=== PATIENT | female | born 2000 | race Caucasian/White ===

== ENCOUNTER → 2020-02-04 | Outpatient (CLI) | payer MEDICAID | END | disposition home or self-care (01) | LOC: LABWHC1 11:59 | PROVIDERS: ATTEND Physician Assistant Medical | DX: U07.1 COVID-19 (principal); R00.2 Palpitations | CPT/HCPCS: 36415; 93005 ==

== ENCOUNTER → 2020-02-10 | Outpatient (CLI) | payer MEDICAID ==
--- NOTE | 2020-02-10 14:22 | XR ---
EXAMINATION TYPE: XR chest 2V DATE OF EXAM: 02/10/2020 COMPARISON: Prior chest x-ray December 20, 2016 HISTORY: Covid +3 weeks ago. Shortness of breath. TECHNIQUE: Frontal and lateral views of the chest are obtained. FINDINGS: There is no focal air space opacity, pleural effusion, or pneumothorax seen. The cardiac silhouette size is within normal limits. The osseous structures are intact. IMPRESSION: No acute cardiopulmonary process. No significant change from prior.
== END | disposition home or self-care (01) ==
LOC: RADXRMAIN 13:47
PROVIDERS: ATTEND Nurse Practitioner
DX: R06.02 Shortness of breath (principal)
CPT/HCPCS: 71046

== ENCOUNTER → 2022-12-23 | Outpatient (CLI) | payer BC ==
[2022-12-23 11:06] LABS: ALT 19 U/L (8-44); AST 16 U/L (13-35); Albumin 4.2 d/dL (3.8-4.9); Albumin/Globulin Ratio 1.68 Ratio (1.60-3.17); Alkaline Phosphatase 87 U/L (41-126); BUN/Creat Ratio 11.78 Ratio (12.00-20.00); Blood Urea Nitrogen 10.6 mg/dL (9.0-27.0); Calcium 9.3 mg/dL (8.7-10.3); Chloride 105 mmol/L (96-109); Chol/HDL Ratio 3.48 Ratio; Globulin 2.5 d/dL (1.6-3.3); Glucose 92 mg/dL (70-110); LDL Cholesterol,Calculated 103.8 mg/dL (0.0-131.0); Sodium 142 mmol/L (135-145); Total Bilirubin 0.3 mg/dL (0.3-1.2); Total Protein 6.7 d/dL (6.2-8.2)
[2022-12-23 11:07] LABS: Basophils # (A) 0.04 X 10*3/uL (0.00-0.10); Basophils % (A) 0.5 %; Eosinophils % (A) 1.3 %; HCT 43.3 % (37.2-46.3); HGB 14.7 d/dL (12.0-15.0); Lymphocytes # (A) 2.69 X 10*3/uL (0.90-5.00); Lymphocytes % (A) 35.8 %; MCH 29.7 pg (27.0-32.0); MCHC 33.9 d/dL (32.0-37.0); MCV 87.5 FL (80.0-97.0); Mean Platelet Volume 9.6 FL (9.5-12.2); Monocytes # (A) 0.52 X 10*3/uL (0.20-1.00); Monocytes % (A) 6.9 %; NRBC Per 100 WBC 0 X 10*3/uL (0.00-0.01); Neutrophils # (A) 4.14 X 10*3/uL (1.80-7.70); Neutrophils % (A) 55.2 %; Platelet Count 349 X 10*3/uL (140-440); RBC 4.95 X 10*6/uL (4.10-5.20); RDW 11.9 % (11.5-14.5); WBC 7.51 X 10*3/uL (4.50-10.00)
== END | disposition home or self-care (01) ==
LOC: LABWHC1 07:17
PROVIDERS: ATTEND Family Medicine
DX: Z00.00 Encounter for general adult medical examination without abnormal findings (principal)
CPT/HCPCS: 36415; 80053; 80061; 83036; 85025

== ENCOUNTER 2023-11-19 10:33 | Emergency (ER) | payer BC ==
[2023-11-19] MEDS: KETOROLAC 15 MG/ML 1 ML VIAL IVP STA (11:34)
[2023-11-19 12:01] LABS: Basophils % (A) 0 %; Eosinophils # (A) 0.1 k/uL (0-0.7); Eosinophils % (A) 1 %; HCT 40.3 % (34.0-46.0); Lymphocytes # (A) 1.7 k/uL (1.0-4.8); Lymphocytes % (A) 10 %; MCH 30.4 pg (25.0-35.0); MCHC 34.7 g/dL (31.0-37.0); MCV 87.6 fL (80.0-100.0); Mean Platelet Volume 7.5; Monocytes # (A) 0.7 k/uL (0-1.0); Monocytes % (A) 4 %; Neutrophils # (A) 13.3 k/uL (1.3-7.7); Neutrophils % (A) 84 %; Platelet Count 344 k/uL (150-450); RDW 12.3 % (11.5-15.5); WBC 15.9 k/uL (3.8-10.6)
[2023-11-19 12:07] LABS: Appearance,Urine Cloudy (Clear); Bacteria,Urine Occasional /hpf; Bilirubin,Urine Negative (Negative); Blood,Urine Trace (Negative); Color,Urine Yellow; Glucose,Urine (UA) Negative (Negative); Ketones,Urine 1+ (Negative); Leukocyte Esterase,Urine Large (Negative); Mucus,Urine Many /hpf; Nitrite,Urine Negative (Negative); Protein,Urine 1+ (Negative); RBC,Urine 6 /hpf (0-5); Specific Gravity,Urine 1.044 (1.001-1.035); Squamous Epithelial Cell,Urine 4 /hpf (0-4); Urobilinogen,Urine <2.0 mg/dL (<2.0); WBC,Urine 12 /hpf (0-5)
[2023-11-19 12:20] LABS: ALT 16 U/L (4-34); AST 21 U/L (14-36); African American GFR (CKD) >90 (>60 ml/min/1.73 sqM); Albumin 4.1 g/dL (3.5-5.0); Alkaline Phosphatase 84 U/L (38-126); Anion Gap 8 mmol/L; Blood Urea Nitrogen 13 mg/dL (7-17); Calcium 9.1 mg/dL (8.4-10.2); Carbon Dioxide 24 mmol/L (22-30); Chloride 107 mmol/L (98-107); Glucose 84 mg/dL (74-99); Non-African American GFR(CKD) >90 (>60 ml/min/1.73 sqM); Potassium 3.9 mmol/L (3.5-5.1); Sodium 139 mmol/L (137-145); Total Bilirubin 0.8 mg/dL (0.2-1.3)
--- NOTE | 2023-11-19 12:41 | ED ---
Skin/Abscess/FB HPI - General Chief complaint: Skin/Abscess/Foreign Body Stated complaint: cyst on butt Time Seen by Provider: 11/19/23 12:40 Source: patient, RN notes reviewed Mode of arrival: ambulatory Limitations: no limitations - History of Present Illness Initial comments: 23-year-old female presenting to the ER with a chief complaint of a buttock abscess. Patient states she first noticed it as a sore which she describes as a bruise on her right inner buttock. She states it has slowly has been beginning to grow into a size of a grape and larger over the past 2 weeks. Patient was seen by urgent care and started on doxycycline. Patient states that she has had an increase in pain in the past day making it difficult to lay or touch. She d oes report low-grade fevers at home. No drainage from the area. No history of pilonidal cyst. Patient denies any abdominal pain, urinary complaints, constipation/diarrhea. No history of autoimmune diseases. - Related Data Home Medications Medication Instructions Recorded Confirmed Doxycycline Hyclate 100 mg PO BID 11/19/23 11/19/23 Kurvelo 1 tab PO HS 11/19/23 11/19/23 Previous Rx's Medication Instructions Recorded Clindamycin [Cleocin] 150 mg PO Q6H 7 Days #84 capsule 11/19/23 Nitrofurantoin Monohyd/M-Cryst 100 mg PO Q12HR #14 cap 11/19/23 [Macrobid] Allergies Allergy/AdvReac Type Severity Reaction Status Date / Time amoxicillin Allergy Rash/Hives Verified 11/19/23 10:41 Review of Systems ROS Statement: Those systems with pertinent positive or pertinent negative responses have been documented in the HPI. ROS Other: All systems not noted in ROS Statement are negative. Past Medical History Past Medical History: No Reported History History of Any Multi-Drug Resistant Organisms: None Reported Past Surgical History: No Surgical Hx Reported Past Psychological History: No Psychological Hx Reported Smoking Status: Never smoker Past Alcohol Use History: Occasional Past Drug Use History: None Reported General Exam Limitations: no limitations General appearance: alert, in no apparent distress Respiratory exam: Present: normal lung sounds bilaterally. Absent: respiratory distress, wheezes, rales, rhonchi, stridor Cardiovascular Exam: Present: regular rate, normal rhythm, normal heart sounds. Absent: systolic murmur, diastolic murmur, rubs, gallop, clicks GI/Abdominal exam: Present: soft, normal bowel sounds. Absent: distended, tenderness, guarding, rebound, rigid Neurological exam: Present: alert, oriented X3, CN II-XII intact Skin exam: Present: warm, dry, intact, normal color, other ([id number] indurated area to right buttock lateral to pilonidal sinus) Course Vital Signs 11/19/23 11/19/23 11/19/23 10:38 13:33 14:24 Temperature 98.2 F 101.2 F H 100 F H Pulse Rate 98 100 106 H Respiratory 20 18 18 Rate Blood Pressure 143/85 148/96 137/89 O2 Sat by Pulse 99 100 Oximetry 11/19/23 14:51 Temperature 100 F H Pulse Rate 101 H Respiratory 18 Rate Blood Pressure 134/86 O2 Sat by Pulse 99 Oximetry Procedures - Incision & Drainage Consent Obtained: verbal consent Indication: abscess Site: buttock Size (cm): 3 Anesthetic Used: lidocaine 1%, without epi Amount (mLs): 5 I&D Cleaning Method: Alcohol Wipe Sterile Field Used?: Yes Scalpel Used: #11 Ultrasound used: No Needle Aspiration Performed?: Yes Irrigation Performed?: No I&D Drainage Obtained: Pus, Blood Insertion of drain: No Patient Tolerated Procedure: well Medical Decision Making - Medical Decision Making Was pt. sent in by a medical professional or institution ([facility] Gasca, [employer], urgent ca re, hospital, or [facility]...) When possible be specific @ -No Did you speak to anyone other than the patient for history (EMS, parent, family, police, friend...)? What history was obtained from this source @ -No Did you review nursing and triage notes (agree or disagree)? Why? @ -I reviewed and agree with nursing and triage notes Were old charts reviewed (outside hosp., previous admission, EMS record, old EKG, old radiological studies, urgent care reports/EKG's, [facility] records)? Report findings @ -No old charts were reviewed Differential Diagnosis (chest pain, altered mental status, abdominal pain women, abdominal pain men, vaginal bleeding, weakness, fever, dyspnea, syncope, headache, dizziness, GI bleed, back pain, seizure, CVA, palpatations, mental health, musculoskeletal)? @ -Abscess, cyst, fistula This list is not meant to be all-inclusive EKG interpreted by me (3pts min.). @ -None done X-rays interpreted by me (1pt min.). @ -None done CT interpreted by me (1pt min.). @ -CT abdomen pelvis left gluteal perianal 3.3 cm abscess. No obvious track to the rectum. Midline 10.1 cm complex pelvic mass most consistent with a teratoma. Likely originates from the left ovary. U/S interpreted by me (1pt. min.). @ -None done What testing was considered but not performed or refused? (CT, X-rays, U/S, labs)? Why? @ -None What meds were considered but not given or refused? Why? @ -None Did you discuss the management of the patient with other professionals (professionals i.e. , PA, PARTS FINISHER, lab, RT, psych nurse, professor of social work, technical marketing engineer, teacher, special police officer, case investigator)? Give summary @ -No Was smoking cessation discussed for >3mins.? @ -No Was critical care preformed (if so, how long)? @ -No Were there social determinants of health that impacted care today? How? (Homelessness, low income, unemployed, alcoholism, drug addiction, transportation, low edu. Level, literacy, decrease access to med. care, residential, rehab)? @ -No Was there de-escalation of care discussed even if they declined (Discuss DNR or withdrawal of care, Hospice)? DNR status @ -No What co-morbidities impacted this encounter? (DM, HTN, Smoking, COPD, CAD, Ca ncer, CVA, ARF, Chemo, Hep., AIDS, mental health diagnosis, sleep apnea, morbid obesity)? @ -None Was patient admitted / discharged? Hospital course, mention meds given and route, prescriptions, significant lab abnormalities, going to OR and other pertinent info. @ -Discharge. 23-year-old female presented to the ER with a chief complaint of a buttock abscess. History and physical exam completed. Vitals within the limits. On examination there is a 3 x 4 cm fluctuance/indurated area overlying erythema consistent with an abscess to the right buttock just lateral to pilonidal region. No drainage present. Area is tender to touch. Due to concern of fistula CT and laboratory studies obtained.Laboratory studies remarkable for a WBC of 15.9 with a left shift otherwise unremarkable. Urinalysis concerning of infection with large leukocyte esterases, 12 WBCs and occasional bacteria. Urine hCG negative. CT abdomen pelvis showing a left gluteal perianal 3.3 cm abscess. No obvious tract to the rectum. There is also a midline 10.1 cm complex pelvic mass most consistent with a teratoma likely originating from left ovary. Patient became febrile in the ER at 101.2 and received p.o. Tylenol at that time. Patient received symptomatic pain control in the ER. Abscess drained, see note above. Clindamycin prescribed for abscess. Macrobid prescribed for UTI. I advise close follow-up with [employer], referral given for further evaluation of teratoma. As patient is young with no comorbidities patient is stable for discharge with outpatient follow-up. Strict return parameters discussed. Patient discharged in stable condition. Patient verbally expressed understanding and agreement with care plan. Case discussed with ED attending, Dr. Banda Undiagnosed new problem with uncertain prognosis? @ -No Drug Therapy requiring intensive monitoring for toxicity (Heparin, Nitro, Insulin, Cardizem)? @ -No Were any procedures done? @ -Yes, I&D Diagnosis/symptom? @ -UTI/teratoma/perianal abscess Acute, or Chronic, or Acute on Chronic? @ -Acute Uncomplicated (without systemic symptoms) or Complicated (systemic symptoms)? @ -Complicated Side effects of treatment? @ -No Exacerbation, Progression, or Severe Exacerbation? @ -No Poses a threat to life or bodily function? How? (Chest pain, [place], [place], pneumonia, PE, COPD, DKA, ARF, appy, cholecystitis, CVA, Diverticulitis, Homicidal, Suicidal, threat to staff... and all critical care pts) @ -No - Lab Data Result diagrams: 11/19/23 11:32 11/19/23 11:32 Lab Results 11/19/23 11/19/23 11/19/23 Range/Units 11:32 11:32 11:32 WBC 15.9 H (3.8-10.6) k/uL RBC 4.60 (3.80-5.40) m/uL Hgb 14.0 (11.4-16.0) gm/dL Hct 40.3 (34.0-46.0) % MCV 87.6 (80.0-100.0) fL MCH 30.4 (25.0-35.0) pg MCHC 34.7 (31.0-37.0) g/dL RDW 12.3 (11.5-15.5) % Plt Count 344 (150-450) k/uL MPV 7.5 Neutrophils % 84 % Lymphocytes % 10 % Monocytes % 4 % Eosinophils % 1 % Basophils % 0 % Neutrophils # 13.3 H (1.3-7.7) k/uL Lymphocytes # 1.7 (1.0-4.8) k/uL Monocytes # 0.7 (0-1.0) k/uL Eosinophils # 0.1 (0-0.7) k/uL Basophils # 0.0 (0-0.2) k/uL Sodium (137-145) mmol/L Potassium (3.5-5.1) mmol/L Chloride (98-107) mmol/L Carbon Dioxide (22-30) mmol/L Anion Gap mmol/L BUN (7-17) mg/dL Creatinine (0.52-1.04) mg/dL Est GFR (CKD-EPI)AfAm (>60 ml/min/1.73 sqM) Est GFR (CKD-EPI)NonAf (>60 ml/min/1.73 sqM) Glucose (74-99) mg/dL Plasma Lactic Acid Sanford (0.7-2.0) mmol/L Calcium (8.4-10.2) mg/dL Total Bilirubin (0.2-1.3) mg/dL AST (14-36) U/L ALT (4-34) U/L Alkaline Phosphatase (38-126) U/L Total Protein (6.3-8.2) g/dL Albumin (3.5-5.0) g/dL Urine Color Yellow Urine Appearance Cloudy H (Clear) Urine pH 6.0 (5.0-8.0) Ur Specific Bennett 1.044 H (1.001-1.035) Urine Protein 1+ H (Negative) Urine Glucose (UA) Negative (Negative) Urine Ketones 1+ H (Negative) Urine Blood Trace H (Negative) Urine Nitrite Negative (Negative) Urine Bilirubin Negative (Negative) Urine Urobilinogen <2.0 (<2.0) mg/dL Ur Leukocyte Esterase Large H (Negative) Urine RBC 6 H (0-5) /hpf Urine WBC 12 H (0-5) /hpf Ur Squamous Epith Cells 4 (0-4) /hpf Urine Bacteria Occasional H (None) /hpf Urine Mucus Many H (None) /hpf Urine HCG, Qual Not Detected (Not Detectd) 11/19/23 11/19/23 Range/Units 11:32 11:32 WBC (3.8-10.6) k/uL RBC (3.80-5.40) m/uL Hgb (11.4-16.0) gm/dL Hct (34.0-46.0) % MCV (80.0-100.0) fL MCH (25.0-35.0) pg MCHC (31.0-37.0) g/dL RDW (11.5-15.5) % Plt Count (150-450) k/uL MPV Neutrophils % % Lymphocytes % % Monocytes % % Eosinophils % % Basophils % % Neutrophils # (1.3-7.7) k/uL Lymphocytes # (1.0-4.8) k/uL Monocytes # (0-1.0) k/uL Eosinophils # (0-0.7) k/uL Basophils # (0-0.2) k/uL Sodium 139 (137-145) mmol/L Potassium 3.9 (3.5-5.1) mmol/L Chloride 107 (98-107) mmol/L Carbon Dioxide 24 (22-30) mmol/L Anion Gap 8 mmol/L BUN 13 (7-17) mg/dL Creatinine 0.75 (0.52-1.04) mg/dL Est GFR (CKD-EPI)AfAm >90 (>60 ml/min/1.73 sqM) Est GFR (CKD-EPI)NonAf >90 (>60 ml/min/1.73 sqM) Glucose 84 (74-99) mg/dL Plasma Lactic Acid Sanford 0.9 (0.7-2.0) mmol/L Calcium 9.1 (8.4-10.2) mg/dL Total Bilirubin 0.8 (0.2-1.3) mg/dL AST 21 (14-36) U/L ALT 16 (4-34) U/L Alkaline Phosphatase 84 (38-126) U/L Total Protein 7.0 (6.3-8.2) g/dL Albumin 4.1 (3.5-5.0) g/dL Urine Color Urine Appearance (Clear) Urine pH (5.0-8.0) Ur Specific Bennett (1.001-1.035) Urine Protein (Negative) Urine Glucose (UA) (Negative) Urine Ketones (Negative) Urine Blood (Negative) Urine Nitrite (Negative) Urine Bilirubin (Negative) Urine Urobilinogen (<2.0) mg/dL Ur Leukocyte Esterase (Negative) Urine RBC (0-5) /hpf Urine WBC (0-5) /hpf Ur Squamous Epith Cells (0-4) /hpf Urine Bacteria (None) /hpf Urine Mucus (None) /hpf Urine HCG, Qual (Not Detectd) - Radiology Data Radiology results: report reviewed, image reviewed Disposition Clinical Impression: UTI (urinary tract infection), Perianal abscess, Teratoma of left ovary Disposition: HOME SELF-CARE Condition: Stable Instructions (If sedation given, give patient instructions): Abscess Incision and Drainage (ED) Additional Instructions: Continue to use heat and massage abscess to aid with drainage. Complete full course of clindamycin for abscess and UTI. Follow-up with [employer] for further evaluation of teratoma. Return to the ER for any new or worsening concerns. Prescriptions: Clindamycin [Cleocin] 150 mg PO Q6H 7 Days #84 capsule Nitrofurantoin Monohyd/M-Cryst [Macrobid] 100 mg PO Q12HR #14 cap Is patient prescribed a controlled substance at d/c from ED?: No Referrals: Scott Styles MD [Primary Care Provider] - 1-2 days Derrell Gómez MD [STAFF PHYSICIAN] - 1-2 days Time of Disposition: 14:23
--- NOTE | 2023-11-19 13:22 | CT ---
EXAMINATION TYPE: CT abdomen pelvis w con CT DLP: 1745.4 mGycm, Automated exposure control for dose reduction was used. DATE OF EXAM: 11/19/2023 1:09 PM COMPARISON: None CLINICAL INDICATION:Female, 23 years old with history of left buttock abscess; Left buttock abscess; UTI TECHNIQUE: Standard CT of the abdomen and pelvis following the administration of 100 cc of Isovue 3 00 IV contrast material. Coronal and sagittal reformats were performed. FINDINGS: LOWER CHEST: Unremarkable ABDOMEN LIVER: Unremarkable GALLBLADDER AND BILE DUCTS: Unremarkable. PANCREAS: Unremarkable. SPLEEN: Unremarkable. ADRENAL GLANDS: Unremarkable. KIDNEYS AND URETERS: No evidence of hydronephrosis or renal calculus. The kidneys enhance symmetrical ly. Contrast demonstrate within both collecting systems on delayed phase. PELVIS BLADDER: Under distended, limiting evaluation. REPRODUCTIVE: Midline pelvic 10.1 x 9.5 x 9.4 cm mass containing fat, fluid, soft tissue, and calcifi cation (series 201, image 24). There is surrounding mass effect upon the uterus with deviation to the right. ABDOMEN & PELVIS STOMACH AND BOWEL: Stomach and duodenum are unremarkable. No focal bowel wall thickening or surroundi ng inflammatory changes. The appendix is within normal limits. No evidence of bowel obstruction. PERITONEUM: No evidence of pneumoperitoneum or free fluid. VASCULATURE: No evidence of aortic aneurysm. MUSCULOSKELETAL: No acute osseous abnormalities LYMPH NODES: No gross evidence for lymphadenopathy. SOFT TISSUE/ABDOMINAL WALL: Left gluteal skin thickening with fat stranding with a 3.3 x 2.4 cm fluid collection (series 21, image 83). No obvious tract to the rectum identified. IMPRESSION: 1. Left gluteal perianal 3.3 cm abscess. No obvious tract to the rectum. If there is continued clini katherine concern for fistula, consider further evaluation with MRI. 2. Midline 10.1 cm complex pelvic mass most consistent with a teratoma, likely originates from the le ft ovary. Consider gynecologic surgical evaluation. [facility], , 11/19/2023 1:20 PM
[2023-11-19 13:33] VITALS: RESP 18
[2023-11-19] MEDS: SODIUM CHLORIDE 0.9% 1,000 ML IV STA (13:38)
[2023-11-19] MEDS: ACETAMINOPHEN TAB 500 MG TAB PO STA (13:41)
[2023-11-19] MEDS: HYDROmorphone 1 MG/ML 1 ML SYRINGE IVP STA (13:42)
[2023-11-19] MEDS: LIDOCAINE 1% INJ 10MG/ML (20 ML MDV) SQ ONE (13:51)
[2023-11-19 14:29] VITALS: TEMP 100
[2023-11-19 14:52] VITALS: BP 134/86; PULSE 101
== END 2023-11-19 14:55 | disposition home or self-care (01) ==
LOC: EC 10:33
CPT/HCPCS: 10060; 36415; 74177; 80053; 81001; 81025; 83605; 85025; 96361; 96374; 96375; 99284

== ENCOUNTER → 2023-12-12 | Outpatient (CLI) | payer BC ==
[2023-12-12 15:32] LABS: Blood Urea Nitrogen 9.5 mg/dL (9.0-27.0); Carbon Dioxide 22.2 mmol/L (21.6-31.8); Chloride 106 mmol/L (96-109); Glucose 95 mg/dL (70-110); Potassium 4.2 mmol/L (3.5-5.5); Sodium 141 mmol/L (135-145)
[2023-12-12 15:33] LABS: Basophils # (A) 0.03 X 10*3/uL (0.00-0.10); Basophils % (A) 0.6 %; Eosinophils # (A) 0.04 X 10*3/uL (0.04-0.35); Eosinophils % (A) 0.8 %; HCT 43.9 % (37.2-46.3); HGB 14.5 g/dL (12.0-15.0); Lymphocytes # (A) 1.91 X 10*3/uL (0.90-5.00); Lymphocytes % (A) 37.2 %; MCH 29.6 pg (27.0-32.0); MCV 89.6 FL (80.0-97.0); Mean Platelet Volume 10.3 FL (9.5-12.2); Monocytes # (A) 0.26 X 10*3/uL (0.20-1.00); Monocytes % (A) 5.1 %; NRBC Per 100 WBC 0 X 10*3/uL (0.00-0.01); Neutrophils # (A) 2.88 X 10*3/uL (1.80-7.70); Neutrophils % (A) 56.1 %; Platelet Count 352 X 10*3/uL (140-440); RDW 12.1 % (11.5-14.5); WBC 5.13 X 10*3/uL (4.50-10.00)
== END | disposition home or self-care (01) ==
LOC: LABPAT 10:56
PROVIDERS: ATTEND Obstetrics & Gynecology
DX: Z01.812 Encounter for preprocedural laboratory examination (principal)
CPT/HCPCS: 80051; 82565; 82947; 84520; 85025; 86850; 86900; 86901; 87086

== ENCOUNTER 2023-12-15 05:53 | Inpatient (IN) | payer BC ==
[2023-12-10 12:04] VITALS: BMI 30.5
[~2023-12-15 05:53] MED LIST: LIDOCAINE 1% (10MG/ML) FOR IV START INTRADERMA PRN
[2023-12-15] MEDS: SCOPOLAMINE 1 MG/72 HR PATCH TRANSDERM ONE (06:32)
[2023-12-15] MEDS: ONDANSETRON 4 MG/2 ML VIAL IVP ONE (06:43)
[2023-12-15] MEDS: DEXAMETHASONE SOD PHOSPHATE 4 MG/ML 1 ML VIAL IV ONE (06:43)
[2023-12-15] MEDS: LACTATED RINGERS 1,000 ML IV SCH ×2 (06:43→22:51)
[2023-12-15] MEDS: FAMOTIDINE 20 MG/2 ML VIAL IV STA (06:48)
[2023-12-15] MEDS: IV FLUID CONTINUATION 1,000 ML IV ONE (06:49)
[2023-12-15] MEDS ORDERED: HYDROmorphone 0.5 MG/0.5 ML SYRINGE IVP PRN (07:00)
[2023-12-15] MEDS ORDERED: ROCURONIUM 10 MG/ML (5 ML VIAL) IV ONE (07:24)
[2023-12-15] MEDS ORDERED: KETOROLAC 15 MG/ML 1 ML VIAL ONE (07:24)
[2023-12-15] MEDS ORDERED: HYDROmorphone (PF) 1 MG/ML ONE (07:24)
[2023-12-15] MEDS ORDERED: PROPOFOL 10 MG/ML 20 ML VIAL IV ONE (07:24)
[2023-12-15] MEDS ORDERED: NEOSTIGMINE 1 MG/ML 10 ML VIAL ONE (07:24)
[2023-12-15] MEDS ORDERED: ACETAMINOPHEN IV (For NPO) 1,000 MG/100 ML VIAL ONE (07:24)
[2023-12-15] MEDS ORDERED: MIDAZOLAM 2 MG/2 ML VIAL ONE (07:24)
[2023-12-15] MEDS ORDERED: ONDANSETRON 4 MG/2 ML VIAL ONE (07:24)
[2023-12-15] MEDS ORDERED: SUCCINYLCHOLINE CHLORIDE 200 MG/10 ML VIAL IV ONE (07:24)
[2023-12-15] MEDS ORDERED: GLYCOPYRROLATE 0.2 MG/ML 2 ML VIAL ONE (07:24)
[2023-12-15] MEDS ORDERED: LIDOCAINE 1% INJ 10MG/ML (20 ML MDV) ONE (07:24)
[2023-12-15] MEDS ORDERED: fentaNYL (PF) 50 MCG/ML 2 ML AMP ONE (07:24)
[2023-12-15] MEDS ORDERED: DEXAMETHASONE SOD PHOSPHATE 10 MG/ML 1 ML VIAL ONE (07:24)
[2023-12-15] MEDS ORDERED: diphenhydrAMINE 25 MG CAP PO PRN (08:53)
[2023-12-15] MEDS ORDERED: SIMETHICONE 80 MG CHEWABLE PO PRN (08:53)
[2023-12-15] MEDS ORDERED: METOCLOPRAMIDE 5 MG/ML 2 ML VIAL IVP PRN (08:53)
[2023-12-15] MEDS ORDERED: NALOXONE 0.4 MG/ML 1 ML VIAL IV PRN (08:57)
--- NOTE | 2023-12-15 09:09 | P.OP ---
Date of Procedure: 12/15/23 Preoperative Diagnosis: #1. Presumptive left ovarian benign cystic teratoma Postoperative Diagnosis: Same Procedure(s) Performed: #1. Mini laparotomy #2. Left ovarian cystectomy with ovarian reconstruction Anesthesia: RAFAEL Surgeon: Derrell Gómez Director Targeted Marketing #1: Ce Aguilar Estimated Blood Loss (ml): 20 IV fluids (ml): 1,000 Urine output (ml): 250 Pathology: other (Left ovarian cyst and contents, pelvic washings) Condition: stable Disposition: PACU Operative Findings: Intraoperatively, the patient was found on exploration of the pelvis to have a large left ovarian mass, approximately 12 cm in size which was free and mobile. It was able to be elevated up and through the incision. In the process of excising the cyst from the overlying capsule, the cyst was ruptured and a significant amount of sebum, hair, and fatty tissue were expressed significantly decompressing the cyst. The entire cyst was removed and the ovarian capsule was intact. All hair, sebum, and fatty tissue was protected from entering the abdomen with a laparotomy sponge and suction. Following reconstruction, exploration of the pelvis demonstrated an entirely normal uterus and right ovary to both palpation and inspection. Thorough irrigation was carried out at the end of the procedure. Description of Procedure: The patient was prepped and draped in usual fashion after general endotracheal anesthesia was administered by the anesthesiologist. A roughly 10 to 12 cm incision was made in a Pfannenstiel fashion and extended into the abdominal cavity without difficulty. Peritoneal washings were taken using a Lukey trap the pelvis was explored and the mass was noted as above. We are ultimately able to leverage the entire ovary up and through the incision using a wide Bessie. The entire base of the cyst and infundibulopelvic ligament was wrapped in 1 or 2 laparotomy sponges. There was still a significant amount of capsule present and the decision was made to proceed with cystectomy and reconstruction. An incision was made with a scalpel over the main portion of the cyst and the margins of the ovarian capsule grasped with Allis clamps and/or hemostats. Blunt dissection was utilized to separate the capsule from the underlying cyst. In the process of the dissection. A rent was made in the actual cyst spilling a significant amount of sebum and hair into the field. Ultimately much of the hair was removed with a laparotomy sponge and placed into a specimen bowl. Once assisted been decompressed. We continued with the blunt dissection of the capsule from the underlying cyst. The cyst was otherwise removed completely intact. The cyst was passed for pathological diagnoses. The remaining ovarian capsule was irrigated and closed in a spiral circumferential fashion using 2-0 Vicryl from the base of the wound to near the capsule. There was no ongoing bleeding of any significance within the ovary itself. At the capsule, a running locking stitch of 2-0 Vicryl was utilized to imbricate the margins of the ovarian capsular incision. Hemostasis was excellent throughout. Further irrigation was carried out and any evidence of hair sebum removed. The underlying laparotomy sponges were then removed and the ovary replaced in its normal anatomic location. The uterus and right ovary were then examined and found to be entirely normal, the ovary both palpated and visualized. Thorough irrigation of the pelvis was then carried out. The layer of muscles was examined and found to be hemostatic. The fascia was closed with 2 stitches of 0 Vicryl proceeding from the lateral margins to the midpoint. The subcutaneous tissues were irrigated and made hemostatic with the Bovie. They were then closed with a running stitch of 2-0 Vicryl. The skin was reapproximated with a running subcuticular stitch of 4-0 Monocryl followed by half-inch Steri-Strips placed with Mastisol. Estimated blood loss for the case was 20 mL or less. There were no complications. All sponge, instrument, and needle counts were correct. The patient tolerated the procedure well and proceeded to the recovery room in stable condition.
[2023-12-15] MEDS: droPERidol 5 MG/2 ML VIAL IVP ONE (10:19)
[2023-12-15] MEDS: SENNOSIDES-DOCUSATE SODIUM 1 EACH TAB PO SCH (10:19)
[2023-12-15] MEDS: HYDROmorphone PCA 10 MG/50 ML BAG IV PRN (11:16)
[2023-12-15] MEDS: ACETAMINOPHEN TAB 500 MG TAB PO SCH (15:54)
[2023-12-15] MEDS: KETOROLAC 15 MG/ML 1 ML VIAL IVP PRN (15:54)
[2023-12-15] MEDS: IBUPROFEN 800 MG TAB PO SCH (15:58)
[2023-12-15] MEDS: ONDANSETRON 4 MG/2 ML VIAL IVP PRN (19:31)
[2023-12-16 05:26] LABS: Basophils % (A) 0 %; Eosinophils # (A) 0.1 k/uL (0-0.7); Eosinophils % (A) 0 %; HCT 38.1 % (34.0-46.0); HGB 13.3 gm/dL (11.4-16.0); Lymphocytes # (A) 1.7 k/uL (1.0-4.8); Lymphocytes % (A) 14 %; MCH 31.1 pg (25.0-35.0); MCHC 34.8 g/dL (31.0-37.0); MCV 89.5 fL (80.0-100.0); Mean Platelet Volume 7.6; Monocytes # (A) 0.9 k/uL (0-1.0); Monocytes % (A) 7 %; Neutrophils # (A) 9.1 k/uL (1.3-7.7); Neutrophils % (A) 77 %; Platelet Count 291 k/uL (150-450); RBC 4.26 m/uL (3.80-5.40); RDW 12.3 % (11.5-15.5); WBC 11.9 k/uL (3.8-10.6)
--- NOTE | 2023-12-16 08:42 | P.DS ---
Providers Date of admission: 12/15/23 05:53 Expected date of discharge: 12/16/23 Attending physician: Derrell Gómez Primary care physician: Scott Styles - Discharge Diagnosis(es) (1) Teratoma of left ovary Current Visit: Yes Status: Acute Hospital Course: The patient is a 23-year-old 1 para 0 who was recently seen through the emergency room for a gluteal or perirectal abscess at which time she underwent a CT scan of the abdomen and pelvis which demonstrated a 10 cm probable dermoid. She then followed up in my office at which time we elected to proceed with excision. Given its size it was determined that the best approach would be open. She was taken to the operating room where she underwent exploratory mini laparotomy with left ovarian cystectomy and ovarian reconstruction in an uncomplicated fashion. The remainder of her pelvis was entirely normal including the right ovary. Her postoperative course was unremarkable with vital signs remaining stable and her temperature was afebrile throughout. She was deemed stable for discharge on postoperative day #1 assuming she is able to tolerate a regular diet and pain is well-controlled with oral pain medications. She was discharged home to follow-up in the office in 2 weeks for an incision check and then 6 weeks routinely. Discharge instructions included calling for any significantly increased fever, pain, incisional complaints, GI complaints, urinary complaints, or anything else that concerned her. She was instructed to do no driving until off of all pain medications or 2 weeks time, whichever came first. She was additionally instructed to do no heavy lifting for the next 4 to 6 weeks. She understood her instructions and agrees to follow-up as noted above. Discharge medications included [id number] analgesic pain medications as well as any normal home medications. She was provided a prescription for oxycodone 5 mg, 1-2 p.o. every 6 hours as needed pain, #20 dispensed with no refills. Discharge hemoglobin and hematocrit were essentially unchanged from preoperative. Procedures: #1. Exploratory mini laparotomy #2. Left ovarian cystectomy #3. Ovarian reconstruction Patient Condition at Discharge: Stable Plan - Discharge Summary Discharge Rx Participant: No New Discharge Prescriptions: No Action Kurvelo 1 tab PO DAILY Discharge Medication List Kurvelo 1 tab PO DAILY 11/19/23 [History] Follow up Appointment(s)/Referral(s): Derrell Gómez MD [STAFF PHYSICIAN] - 2 Weeks Patient Instructions/Handouts: *[facility] - (Anesthesia) Discharge Instru ctions Outpatient Surgery, *[facility] - Scopalamine Patch Instructions Discharge Disposition: HOME SELF-CARE
[2023-12-16 09:38] VITALS: TEMP 98.4
[2023-12-16 12:29] VITALS: BP 110/60; PULSE 75; RESP 18
== END 2023-12-16 12:20 | disposition home or self-care (01) | DRG 742 ==
LOC: 2ORMAIN 05:53 → EDSTATUS 07:30 → 4FBP 09:18
PROVIDERS: ADMIT Obstetrics & Gynecology; ATTEND Obstetrics & Gynecology
PROC: 0UB10ZZ Excision of Left Ovary, Open Approach (ICD-10-PCS; principal; 2023-12-15 07:30)
DX: D27.1 Benign neoplasm of left ovary (principal); K61.1 Rectal abscess; N83.9 Noninflammatory disorder of ovary, fallopian tube and broad ligament, unspecified
CPT/HCPCS: 81025; 85025; 88108; 88305; 88307